=== PATIENT | female | born 1950 | race Caucasian/White ===

== ENCOUNTER 2021-08-09 09:14 | Day surgery (SDC) | payer MEDICARE, OTHER ==
[~2021-08-09] VITALS: Ht 152.4 cm; Wt 49.0 kg
[2021-08-09] MEDS ORDERED: LIDOCAINE 2% 100 MG/5 ML UJET TP ONE ×2 (13:15→13:30)
[2021-08-09] MEDS ORDERED: fentaNYL citrate 0.05 MG/ML VIAL ONE (13:15)
[2021-08-09] MEDS ORDERED: SIMETHICONE 40 MG/0.6 ML ONE (13:44)
[2021-08-09] MEDS ORDERED: SIMETHICONE 40 MG/0.6 ML PO ONE (13:50)
[2021-08-09] MEDS ORDERED: fentaNYL citrate 0.05 MG/ML VIAL IVP ONE (13:50)
== END 2021-08-09 14:52 | disposition home or self-care (01) ==
LOC: MDS 09:14 → MFCC 09:22 → MDS 14:52
PROVIDERS: ATTEND Internal Medicine Gastroenterology
DX: Z12.11 Encounter for screening for malignant neoplasm of colon (principal); K57.30 Diverticulosis of large intestine without perforation or abscess without bleeding; K64.4 Residual hemorrhoidal skin tags; I10 Essential (primary) hypertension; Z90.49 Acquired absence of other specified parts of digestive tract; Z79.899 Other long term (current) drug therapy
CPT/HCPCS: G0121; J3010